=== PATIENT | female | born 1955 | race Caucasian/White ===

== ENCOUNTER 2018-09-02 13:50 | Inpatient (IN) | payer BC, OTHER | END 2018-09-03 19:00 | disposition home or self-care (01) | LOC: ER 13:50 → OVERFLOW 21:30 → WEST WING 23:21 ==

== ENCOUNTER 2024-11-02 23:27 | Emergency (ER) | payer BC, OTHER ==
[~2024-11-02] VITALS: Ht 160 cm; Wt 74.0 kg
[~2024-11-02 23:27] MED LIST: BUPR-413 GT
--- NOTE | 2024-11-02 23:55 | ED.PDOC ---
HPI Comments HPI: Poor Historian. 69-year-old female presents to emergency department for midsternal chest discomfort nonradiating intermittent. No particular alleviating or precipitating factors. Patient yesterday is thought it might be wrong hiatal hernia but symptoms woke her up from his sleep today and she feels it might be different. She decided to come here for further evaluation. Vital signs in triage were unremarkable. Patient denies any other associated symptoms. Past Medical History: Hiatal hernia, depression Past Surgical History: Endometriosis, partial thyroidectomy, Hannah disease, left knee surgery, She has two latex. REVIEW OF SYSTEMS: CONSTITUTIONAL: Denies acute: fever, diaphoresis, chills, generalized weakness. HEAD: Denies acute: headache, photophobia Eyes: Denies acute: Double vision, vision loss, eye pain, eye discharge. EARS: Denies acute: tinnitus, hearing loss, ear discharge, ear pain, THROAT: Denies acute: sore throat, swelling, difficulty swallowing , pain with swallowing, change in voice. NECK: Denies acute: neck pain, neck swelling, stiff neck. HEART: Denies acute : chest pain, palpitations, LUNGS: Denies acute: SOB, wheezing, cough, hemoptysis ABDOMEN: Denies acute: abdominal pain, Nausea, Vomiting, diarrhea, melena , hematemesis, hematochezia SKIN: Denies acute: rash, redness, lesions, itchiness. EXTREMITIES: Denies acute: calf pain, numbness, tingling, weakness, denies pain in extremity. Denies acute: Low back pain. Neuro: Denies acute: focal neurological deficit, motor or sensory focal neurological deficit, tremors, seizure like activity, confusion, dizziness, change in mental status, loss of bowel or bladder function, cauda equina like symptoms. : Denies acute: dysuria, hematuria, flank pain, increase in urinary frequency. PSYCH: Denies acute: hallucination, suicidal ideation, homicidal ideation. FEMALE: Denies acute: abnormal vaginal bleeding, foul odor, unusual discharge. PHYSICAL EXAM: General: --------acute distress, awake and alert. Head: normocephalic, atraumatic. Neck: supple, trachea is midline, no swelling. Throat: Normal phonation. Eyes:, no erythema, no purulent discharge, no proptosis, no icterus. Heart: regular rate, regular rhythm, no significant murmur appreciated. Lungs: no apparent respiratory distress, Able to speak in full sentences. No wheezing, no rhonchi, no crackles. No stridors Clear to auscultation bilaterally. Abdomen: non tender to palpation, non distended, soft, no guarding, no rebound, + bowel sounds. Neuro: Awake, Alert, oriented to name, self, situation, follows commands GCS=15. Speech is normal. Skin: no petechia, no purpura, no cyanosis, non-pale, not jaundice. Lower extremities: --no - Pitting edema no deformity, no focal swelling, no calf TTP. Makes eye contact. moves all four extremities. Face: no apparent facial droop. No CVA tenderness to percussion bilaterally. Ambulating in the ED independently. Ears: Normal appearing TM b/l, Stroke: finger to nose cerebellar testing is intact. No pronator drift. Symmetrical registered nurse post partum muscle strength b/l PERRLA, EOM-I CN 2-12 are grossly intact, Pedal pulses are palpable. No nystagmus. No nuchal rigidity, Kernig's sign, Brudzinski's sign, no meningeal signs. ED COURSE: Chief Complaint: Chest Pain Time Seen by MD: 23:33 Primary Care Provider: UNKNOWN Reviewed Notes: Nurses Notes, Allergies Allergies: Uncoded Allergies: SULFA TAPE (Allergy, Unknown, 09/02/18) Home Meds Reported Medications Bupropion Hcl (WELLBUTRIN TABLET) 100 Mg Tb, 125 MG GT DAILY 09/03/18 Information Source: Patient Past Medical History PAST MEDICAL HISTORY: Denies Surgical History: Denies all surgeries ESTATE MANAGER History: Endometriosis Family History Family History: Unknown Social History Smoker: Non-Smoker Alcohol: Denies ETOH Use Drugs: Denies Drug Use Lives In: Home Was a procedure done? Was a procedure done?: No CP Differential Dx Differential Diagnosis: N/A Differential Diagnosis: Other (Ddx include but not limitied to gastritis, m usculoskeletal pain, radiculopathy, atypical chest pain, dissection, aneurysm, ACS, unstable angina, hiatal hernia, GERD, anxiety, costochondritis, PE, pneumothroax, neoplasm, cardiac ischemia, drug abuse, anemia.) X-Ray, Labs, Meds, VS Vital Signs Date Time Temp Pulse Resp B/P (MAP) Pulse Ox O2 Delivery O2 Flow Rate FiO2 11/03/24 00:41 65 11/02/24 23:37 71 11/02/24 23:35 98.0 71 18 121/79 (93) 95 98.0 Lab Test 11/03/24 00:45 11/02/24 23:46 11/02/24 23:40 Range/Units Troponin I High Sensitivity < 3 L < 3 L </=34 ng/L White Blood Count 7.3 4.4-10.8 10^3/uL Red Blood Count 5.05 4.0-5.20 10^6/uL Hemoglobin 15.6 12.2-16.2 g/dL Hematocrit 46.0 36.0-46.0 % Mean Corpuscular Volume 91.1 80.0-100.0 fL Mean Corpuscular Hemoglobin 30.8 28.0-32.0 pg Mean Corpuscular Hemoglobin Concent 33.8 32.0-36.0 g/dL Red Cell Distribution Width 13.5 11.8-14.3 % Platelet Count 229 140-450 10^3/uL Mean Platelet Volume 8.7 6.9-10.8 fL Neutrophils (%) (Auto) 64.2 37.0-80.0 % Lymphocytes (%) (Auto) 24.5 10.0-50.0 % Monocytes (%) (Auto) 9.2 0.0-12.0 % Eosinophils (%) (Auto) 1.6 0.0-7.0 % Basophils (%) (Auto) 0.5 0.0-2.0 % Neutrophils # (Auto) 4.7 1.6-8.6 10 ^3/uL Lymphocytes # (Auto) 1.8 0.4-5.4 10 ^3/uL Monocytes # (Auto) 0.7 0-1.3 10 ^3/uL Eosinophils # (Auto) 0.1 0-0.8 10 ^3/uL Basophils # (Auto) 0 0-0.2 10 ^3/uL Nucleated Red Blood Cells 0.1 % Sodium Level 141 136-145 mmol/L Potassium Level 4.3 3.5-5.1 mmol/L Chloride Level 105 98-107 mmol/L Carbon Dioxide Level 27 20-31 mmol/L Anion Gap 9 5-15 Blood Urea Nitrogen 14 9-23 mg/dL Creatinine 0.84 0.550-1.02 mg/dL Glomerular Filtration Rate Calc 74 >90 mL/min BUN/Creatinine Ratio 16.7 10.0-20.0 Serum Glucose 93 74-106 mg/dL Lactic Acid Level 1.5 0.4-2.0 mmol/L Calcium Level 10.1 8.7-10.4 mg/dL Total Bilirubin 0.4 0.2-1.0 mg/dL Aspartate Amino Transferase (AST) 13 13-40 U/L Alanine Aminotransferase (ALT) 14 7-40 U/L Alkaline Phosphatase 71 46-116 U/L Total Protein 7.1 5.7-8.2 g/dL Albumin 4.6 3.2-4.8 g/dL Lipase 72 H 12-53 U/L Urine Color Light-yellow Yellow Urine Clarity Clear Clear Urine pH 5.0 5.0-9.0 Urine Specific [place] 1.010 1.001-1.035 Urine Protein Negative Negative Urine Ketones Negative Negative Urine Blood 1+ H Negative /uL Urine Nitrite Negative Negative Urine Bilirubin Negative Negative Urine Urobilinogen Normal Negative mg/dL Urine Leukocyte Esterase 2+ Negative /uL Urine RBC 1 0 - 4 /hpf Urine Microscopic WBC 7 H 0-5 /HPF Urine Squamous Epithelial Cells Few <5 /hpf Urine Bacteria None seen None Seen /hpf Urine Mucus Few None Seen Urine Glucose Normal Normal mg/dL [place] [id number] Ph: [phone] DIAGNOSTIC IMAGING Diagnostic Imaging Report : [id number] Signed PATIENT: EVELYN MAKI ACCT: [id number] UNIT: [id number] : 1955 LOC: ER ROOM / BED: / AGE / SEX: 69 / F ADM STATUS: REG ER SERVICE [id number] ORDERING PHYSICIAN: FABIAN SCOTT DO PROCEDURE(s): CXRP - CHEST PORTABLE REASON: cp ORDER NUMBER(s): [id number], ACCESSION NUMBER(s): [id number] CHEST RADIOGRAPH Indication: cp Technique: Single frontal view of the chest was obtained COMPARISON: None FINDINGS: Lines and Tubes: None Lungs: Clear. Pleura: No effusion. No pneumothorax. Cardiomediastinal contours: Large hiatal hernia. Heart size is normal. Bones: Unremarkable IMPRESSION: No acute disease. Large hiatal hernia. ATED BY: GREGORIO DE PAZ MD DICTATED DATE/TIME: 11/03/2431 SIGNED BY: GREGORIO DE PAZ MD SIGNED DATE/TIME: 11/03/2431 CC: Time of 1ST Reevaluation: 01:18 Reevaluation 1ST: Improved Time of 2ND Reevaluation: 02:06 (The case was discussed with the admitting team (HPI, physical exam, labs and diagnostic tests that were available at the time of disposition, ED course, treatment plan) on the phone. They agreed to evaluate the patient and assume care of this patient from this point forward. Nurse practitioner Judith. She said that she is going to discharge the patient.) Patient Education/Counseling: Diagnosis, Treatment Family Education/Counseling: Other Comments Patient presented with the above HPI.---chest pain---workup was initiated. patient was found with the above mentioned diagnosis. the following medications were ordered: please refer to order lists of meds and tests obtained by myself Dr. Scott. Patient ED course and VS have been stabilized. Patient has been reassessed in the ED and remained in a stable condition. Pertinent incidental findings were discussed with the patient and/or family. Patient/family voices understanding and is agreeable with plan. Patient has been observed in the ED adequate length of time to insure improvement/stability. Escalation of care considered: Consideration of escalation to observation or admission Patient was ADMITTED to the medicine team for further evaluation and treatment of their presentation. We will the patient has slightly elevated lipase, she has no epigastric tenderness to palpation. No nausea or vomiting. The nurse practitioner Judith stated that she is going to discharge the patient. Please see her consultation notes and evaluation and recommendation. All the reports of any imaging studies that were ordered by myself were reviewed by myself. Departure 1 Departure Time of Disposition: 23:58 Impression: Primary Impression: Chest pain Disposition: 09 ADMITTED INPATIENT Admit to: [facility] Condition: Guarded Discharged With: Self Critical Care Note Critical Care Time?: No Heart Score Heart Score: Heart Score Response (Comments) Value History Moderate Suspicious 1 EKG Normal 0 Age >65 2 Risk Factors No known risk factors 0 Troponin Normal limit 0 Total 3 FABIAN SCOTT DO November 02, 2024 23:55
[2024-11-03 00:32] LABS: Basophils # (auto) 0 10 ^3/uL (0-0.2); Basophils % (auto) 0.5 % (0.0-2.0); Eosinophils # (auto) 0.1 10 ^3/uL (0-0.8); Eosinophils % (auto) 1.6 % (0.0-7.0); Hemoglobin 15.6 g/dL (12.2-16.2); Lymphocytes # (auto) 1.8 10 ^3/uL (0.4-5.4); Lymphocytes % (auto) 24.5 % (10.0-50.0); Mean Corpuscular Hemoglobin 30.8 pg (28.0-32.0); Mean Corpuscular Hgb Conc. 33.8 g/dL (32.0-36.0); Mean Corpuscular Volume 91.1 fL (80.0-100.0); Monocytes # (auto) 0.7 10 ^3/uL (0-1.3); Monocytes % (auto) 9.2 % (0.0-12.0); Neutrophils # (auto) 4.7 10 ^3/uL (1.6-8.6); Neutrophils % (auto) 64.2 % (37.0-80.0); Nucleated Red Blood Cells % 0.1 %; Platelet Count (auto) 229 10^3/uL (140-450); Red Blood Cells 5.05 10^6/uL (4.0-5.20); Red Cell Distribution Width 13.5 % (11.8-14.3); White Blood Cell 7.3 10^3/uL (4.4-10.8)
--- NOTE | 2024-11-03 00:34 | DVH ---
CHEST RADIOGRAPH Indication: cp Technique: Single frontal view of the chest was obtained COMPARISON: None FINDINGS: Lines and Tubes: None Lungs: Clear. Pleura: No effusion. No pneumothorax. Cardiomediastinal contours: Large hiatal hernia. Heart size is normal. Bones: Unremarkable IMPRESSION: No acute disease. Large hiatal hernia.
[2024-11-03 00:50] LABS: Alanine Aminotransferase 14 U/L (7-40); Albumin 4.6 g/dL (3.2-4.8); Alkaline Phosphatase 71 U/L (46-116); Anion Gap 9 (5-15); BUN/Creatinine Ratio 16.7 (10.0-20.0); Blood Urea Nitrogen 14 mg/dL (9-23); Calcium 10.1 mg/dL (8.7-10.4); Carbon Dioxide 27 mmol/L (20-31); Chloride 105 mmol/L (98-107); Glucose 93 mg/dL (74-106); Potassium 4.3 mmol/L (3.5-5.1); Sodium 141 mmol/L (136-145); Total Protein 7.1 g/dL (5.7-8.2)
[2024-11-03 00:50] LABS: Urine Bacteria None Seen /hpf (None Seen)
[2024-11-03 00:51] LABS: Bilirubin, Total 0.4 mg/dL (0.2-1.0)
[2024-11-03 00:52] LABS: Aspartate Aminotransferase 13 U/L (13-40); Lipase 72 U/L (12-53)
[2024-11-03 01:38] LABS: Urine Blood 1+ /uL (Negative); Urine Clarity Clear (Clear); Urine Color Light-Yellow (Yellow); Urine Mucus FEW (None Seen); Urine Protein, UAD Negative (Negative); Urine Squamous Epithelial Cell FEW /hpf (<5); Urine Urobilinogen Normal (Negative); Urine WBC 7 /HPF (0-5)
--- NOTE | 2024-11-03 02:24 | DVHINCON2 ---
JEANNE MCADAMS [facility] 11/03/24 0224: Date of service: November 03, [address] Toussaint Reason for Consultation medical management History of Present Illness Mrs. Mabel Fountain is a 69 yo female with known history of hiatal hernia recent diagnosis, depression who presents with a chief complaint of non radiating midsternal chest pain x 1 day. Patient reports she woke up with the chest discomfort. Patient denies headaches, dizziness, dyspnea, nausea, vomiting, abdominal pain, constipation, diarrhea, melena, dysuria , hematuria. Patient reports she feels better and would like to go home if everything is "okay". Past Medical History Hiatal Hernia Depression Past Surgical History none reported Family History: Alcoholism G8 FATHER FH: diabetes mellitus G8 MOTHER G8 FATHER FH: liver cancer G8 FATHER Family History none reported Social History Smoker 1 -2 cigarettes daily 1 glass of wine daily Allergies: Uncoded Allergies: SULFA TAPE (Allergy, Unknown, 09/02/18) Home Meds Reported Medications Bupropion Hcl (WELLBUTRIN TABLET) 100 Mg Tb, 125 MG GT DAILY 09/03/18 Review of Systems negative Vital Signs Vital Signs Date Time Temp Pulse Resp B/P (MAP) Pulse Ox O2 Delivery O2 Flow Rate FiO2 11/03/24 00:41 65 11/02/24 23:35 98.0 18 121/79 (93) 95 98.0 Physical Exam HEENT pupils are reactive Neck is supple CV is S1-S2 regular rate and rhythm Respiratory diminished breath sounds bases GI positive bowel sound Extremity no edema [employer] WORKER no motor deficit Labs/Diagnostic Data Labs Test 11/03/24 00:45 11/02/24 23:46 11/02/24 23:40 Range/Units Troponin I High Sensitivity < 3 L </=34 ng/L White Blood Count 7.3 4.4-10.8 10^3/uL Red Blood Count 5.05 4.0-5.20 10^6/uL Hemoglobin 15.6 12.2-16.2 g/dL Hematocrit 46.0 36.0-46.0 % Mean Corpuscular Volume 91.1 80.0-100.0 fL Mean Corpuscular Hemoglobin 30.8 28.0-32.0 pg Mean Corpuscular Hemoglobin Concent 33.8 32.0-36.0 g/dL Red Cell Distribution Width 13.5 11.8-14.3 % Platelet Count 229 140-450 10^3/uL Mean Platelet Volume 8.7 6.9-10.8 fL Neutrophils (%) (Auto) 64.2 37.0-80.0 % Lymphocytes (%) (Auto) 24.5 10.0-50.0 % Monocytes (%) (Auto) 9.2 0.0-12.0 % Eosinophils (%) (Auto) 1.6 0.0-7.0 % Basophils (%) (Auto) 0.5 0.0-2.0 % Neutrophils # (Auto) 4.7 1.6-8.6 10 ^3/uL Lymphocytes # (Auto) 1.8 0.4-5.4 10 ^3/uL Monocytes # (Auto) 0.7 0-1.3 10 ^3/uL Eosinophils # (Auto) 0.1 0-0.8 10 ^3/uL Basophils # (Auto) 0 0-0.2 10 ^3/uL Nucleated Red Blood Cells 0.1 % Sodium Level 141 136-145 mmol/L Potassium Level 4.3 3.5-5.1 mmol/L Chloride Level 105 98-107 mmol/L Carbon Dioxide Level 27 20-31 mmol/L Anion Gap 9 5-15 Blood Urea Nitrogen 14 9-23 mg/dL Creatinine 0.84 0.550-1.02 mg/dL Glomerular Filtration Rate Calc 74 >90 mL/min BUN/Creatinine Ratio 16.7 10.0-20.0 Serum Glucose 93 74-106 mg/dL Lactic Acid Level 1.5 0.4-2.0 mmol/L Calcium Level 10.1 8.7-10.4 mg/dL Total Bilirubin 0.4 0.2-1.0 mg/dL Aspartate Amino Transferase (AST) 13 13-40 U/L Alanine Aminotransferase (ALT) 14 7-40 U/L Alkaline Phosphatase 71 46-116 U/L Total Protein 7.1 5.7-8.2 g/dL Albumin 4.6 3.2-4.8 g/dL Lipase 72 H 12-53 U/L Urine Color Light-yellow Yellow Urine Clarity Clear Clear Urine pH 5.0 5.0-9.0 Urine Specific [place] 1.010 1.001-1.035 Urine Protein Negative Negative Urine Ketones Negative Negative Urine Blood 1+ H Negative /uL Urine Nitrite Negative Negative Urine Bilirubin Negative Negative Urine Urobilinogen Normal Negative mg/dL Urine Leukocyte Esterase 2+ Negative /uL Urine RBC 1 0 - 4 /hpf Urine Microscopic WBC 7 H 0-5 /HPF Urine Squamous Epithelial Cells Few <5 /hpf Urine Bacteria None seen None Seen /hpf Urine Mucus Few None Seen Urine Glucose Normal Normal mg/dL Assessment This is a 69 yo female with known history of hiatal hernia recent diagnosis, depression who presents with a chief complaint of non radiating midsternal chest pain x 1 day. Patient reports she woke up with the chest discomfort. Patient denies headaches, dizziness, dyspnea, nausea, vomiting, abdominal pain, constipation, diarrhea, melena, dysuria , hematuria. Patient reports she feels better and would like to go home if everything is "okay". Patient with WBC 7.3, H&H 15.6/46.0, Platelets 229, Na 141, K 4.3, BUN 14/0.84, Lactic 1.5, Troponin 3, 3. Lipase 72. Chest x ray with no acute disease, large hiatal hernia. Patient denies any chest pain at this time. urinalysis positive leukocyte esterase. Patient with heart score of 2. 1. chest pain 2. UTI 3. Hiatal hernia 4. hx depression Problems(with codes): (1) Chest pain Plan/Recommendation Recommendation: Discharge home , follow up with PCP in 3-5 days. Discussed with O insurance TORY Duran for arrangement of outpatient Cardiology consultation. smoking cessation education provided. recommend home with Oral antibiotics for urinary tract infection. Discussed all above with patient who verbalizes agreement and understanding of assessment and recommendation. Discussed with ED Physician Dr. Toussaint. Plan discussed with: Patient MANNY JUAREZ MD 11/03/24 1249: Family History: Alcoholism G8 FATHER FH: diabetes mellitus G8 MOTHER G8 FATHER FH: liver cancer G8 FATHER Allergies: Uncoded Allergies: SULFA TAPE (Allergy, Unknown, 09/02/18) Home Meds Reported Medications Bupropion Hcl (WELLBUTRIN TABLET) 100 Mg Tb, 125 MG GT DAILY 09/03/18 Assessment Patient's chart is reviewed. Patient is seen and evaluated by nurse practitioner. I agree with the nurse practitioner's evaluation, documentation, assessment and care plan as outlined. JEANNE MCADAMS [employer] November 03, 2024 02:24 MANNY JUAREZ MD November 03, 2024 12:49
[2024-11-03] MEDS: PANTOPRAZOLE 40 MG TAB PO ONE ×2 (03:17)
[2024-11-03] MEDS: LIDOCAINE VISCOUS 2% 15ML UD PO ONE ×2 (03:17)
[2024-11-03] MEDS: SUCRALFATE 1 GM TAB PO ONE ×2 (03:17)
[2024-11-03 03:36] VITALS: BP 98/59; PULSE 76; RESP 21; TEMP 98.4; O2SAT 96
--- NOTE | 2024-11-03 20:32 | ECG ---
[facility] [place] Test Date: 2024-11-03 Test Time: 00:41:42 Pat Name: EVELYN MAKI Department: ER Room: Gender: F [employer] Financial Application Developer: EZE : 1955 Requested By: KRISSY FLORES Order Number: [id number] Reading MD: Gigi Jay Measurements Intervals [place] Rate: 65 P: 67 W[place]: 188 QRS: 74 QRSD: 102 T: 70 QT: 390 QTc: 406 Interpretive Statements Sinus rhythm RSR' in V1 or V2, right VCD or RVH Minimal ST elevation, inferior leads Electronically Signed On 11-05-2024 22:16:41 PDT by Gigi Jay Please click the below link to view image of tracing.
--- NOTE | 2024-11-03 20:32 | ECG ---
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
== END 2024-11-03 03:37 | disposition home or self-care (01) ==
LOC: ER 23:32
DX: R07.89 Other chest pain (principal); Z88.2 Allergy status to sulfonamides
CPT/HCPCS: 36415; 71045; 80053; 81001; 83605; 83690; 84484; 85025; 93005